=== PATIENT | male | born 1965 ===

== ENCOUNTER 2016-12-07 17:14 | Emergency (ER) | payer BC ==
[2016-12-07 17:34] VITALS: BP 166/103
[2016-12-07 17:55] LABS: Hematocrit 49.2 % (42.0-52.0); Hemoglobin 16.9 gm/dL (13.5-18.0); Mean Cell Volume 95.2 fl (78-100); Mean Corpuscular Hemoglobin 32.7 pg (27-31); Mean Corpuscular Hgb Conc 34.3 g/dl (32-36); Mean Platelet Volume 10.1 fl (6.0-9.5); Neutrophil # 3.2 K/mm3 (1.3-6.0); Platelet Count 253 K/mm3 (150-450); Red Blood Count 5.17 M/mm3 (4.7-6.0); Red Cell Distribution Width 12.4 % (11.5-14.0); White Blood Count 5.8 K/mm3 (4.0-10.5)
[2016-12-07] MEDS ORDERED: KETOROLAC TROMETHAMINE 60 MG/2 ML VIAL IM ONE ×2 (17:56→18:17)
[2016-12-07] MEDS ORDERED: ACETAMINOPHEN 500 MG TABLET PO ONE (17:57)
--- NOTE | 2016-12-07 18:01 | ERNOTE ---
Date of Service: 12/07/16 Time Seen by Provider: 12/07/16 17:45 Stated Complaint: TROUBLE BREATHING. COUGH. WEAKNESS Presenting Symptoms:: cough Source: patient, RN notes reviewed Exam Limitations: no limitations Immunizations: IMMUNIZATION HX Immunizations Up to Date Yes History of Influenza Vaccine No Hx Pneumococcal Vaccination No Allergies/Adverse Reactions: Allergies codeine Allergy (Intermediate, Verified 12/07/16 17:37) Penicillins Allergy (Intermediate, Verified 12/07/16 17:37) Home Medications: HOME MEDICATIONS Ibuprofen [Motrin] 1,600 mg PO BID 12/07/16 [Last Taken Unknown] Promethazine HCl/Codeine [Prometh-Codein 6.25-10 mg/5 ml] 5 ml PO Q4H PRN #120 ml 12/07/16 [Last Taken Unknown] - History of Present Ilness Narrative: 51 y/o male to ED alone by private vehicle for a cough and shortness of breath. He reports having symptoms for a month, but he got better while on an antibiotic for a dental infection. He became much worse last night. He also reports body aches and chills. He has been taking OTC meds without improvement. Frequency/Possible Cause: Reports: unknown cause Associated Symptoms: Reports: cough, shortness of breath, nasal congestion, nasal drainage, lightheadedness, earache, headache, sore throat, muscle aches, fever/chills. Denies: wheezing Prior Treatment: Denies: recently seen, currently on antibiotics Review of Systems - Review of Systems Constitutional: Present: See HPI EYE: Present: no symptoms reported ENT: Present: See HPI Respiratory: Present: See HPI Cardiology: Present: no symptoms reported Gastrointestinal/Abdominal: Present: nausea, vomiting, diarrhea. Absent: abdominal pain Genitourinary: Present: no symptoms reported Musculoskeletal: Present: See HPI Skin: Present: no symptoms reported Neurological: Present: See HPI Endocrine: Present: no symptoms reported Hematologic/Lymphatic: Present: no symptoms reported Psych: Present: no symptoms reported - Patient's Past Medical History Patient History - Medical: No pertinent hx Patient History - Cardiac/Respiratory: Hypertension, TIA Patient History - Cancer: No Hx of Cancer Patient History - Surgical Procedures: Noncontributory Patient History - Other: None - Social History Living Situations: home Abuse History: Hx of Substance Use, Hx -Substance Use Tx Psych History: Hx of Depression Smoking Status: Current every day smoker - Immunizations Immunizations Up to Date: Yes Hx Pneumococcal Vaccination: No History of Influenza Vaccine: No Physical Exam - Physical Exam General Appearance: Present: wd/wn, alert, mild distress Eye Exam: Normal inspection: bilateral Ears, Nose, Throat: Present: hearing grossly normal, nasal congestion, pharyngeal erythema. Absent: abnormal TM (R), abnormal TM (L), sinus pain/ drainage Neck: Present: normal inspection, nontender, supple Respiratory: Present: no respiratory distress, normal breath sounds, no accessory muscle use, lungs clear Cardiovascular/Chest: Present: no murmur, normal peripheral pulses, tachycardia Extremity Exam: Present: normal inspection, no edema Neurological Exam: Present: alert, oriented, normal mood/affect, no motor/ sensory deficits Skin Exam: Present: diaphoresis, other - face flushed ED Progress - Results and Orders Patient's Lab Results:: I have reviewed the patient's lab results. - Vital Signs Patient's Vital Signs:: I have reviewed the patient's vital signs. Vital Signs: Vital Signs 12/07/16 17:30 Temperature 38.1 C H Pulse Rate 101 H Respiratory 16 Rate Blood Pressure 166/103 O2 Sat by Pulse 97 Oximetry - X-Ray X-Ray #1 X-Ray: chest Interpretation: Interp. by me X-ray Comments: No acute cardiopulmonary process noted - Progress/Reassessment Chief Complaint: Dyspnea Progress:: Improved Plan - Plan Plan: Verbalizes feeling better after Toradol and Tylenol. Temp down to 37. Labs/ chest xray unremarkable. Tested negative for influenza but appears to have a similar illness. Departure - Departure Clinical Impression: Flu-like symptoms Disposition: Home self-care Condition: Stable Instructions: Influenza, Adult, [id number], Form - Excuse from Work, School, or Physical Activity Additional Instructions: Push fluids Rest Tylenol and ibuprofen for fever/pain Return for worsening symptoms Referrals: [Primary Care Provider] - Prescriptions: Promethazine HCl/Codeine [Prometh-Codein 6.25-10 mg/5 ml] 5 ml PO Q4H PRN #120 ml PRN Reason: Cough
[2016-12-07 18:23] LABS: Troponin I Less than 0.017 ng/ml (0.00-0.10)
[2016-12-07 18:25] LABS: ALT 55 U/L (19-67); AST 24 U/L (0-48); Albumin * 4.4 gm/dl (3.4-5.0); Alkaline Phosphatase * 73 U/L (50-170); Anion Gap 16.3 mmol/L (6.8-13.8); BUN/Creatinine Ratio 16.8 (9.0-21.6); Bilirubin, Total 0.4 mg/dL (0.0-1.1); Blood Urea Nitrogen 16 mg/dL (6-23); Ca. Corrected For Albumin 8.4 mg/dL (8.4-10.2); Carbon Dioxide 24.6 mmol/L (24-32.6); Chloride 104 mmol/L (97-106); Glucose * 101 mg/dL (70-110); Potassium 3.9 mmol/L (3.4-4.6); Sodium 141 mmol/L (132-142); Total Protein 7.7 gm/dL (6.2-8.2)
[2016-12-07] MEDS ORDERED: CODEINE PHOSPHATE/GUAIFENESIN 5 ML UDC PO ONE (20:53)
[2016-12-07] MEDS ORDERED: CODEINE PHOSPHATE/GUAIFENESIN 5 ML UDC ONE (21:03)
== END 2016-12-07 20:58 | disposition home or self-care (01) ==
LOC: ER 17:14
DX: R05 Cough (principal); R06.02 Shortness of breath; R68.83 Chills (without fever); R09.81 Nasal congestion; R42 Dizziness and giddiness; R51 Headache; J02.9 Acute pharyngitis, unspecified; F17.210 Nicotine dependence, cigarettes, uncomplicated